=== PATIENT | female | born 1935 | race Caucasian/White ===

== ENCOUNTER 2016-06-10 13:50 | Observation (INO) | payer OTHER ==
--- NOTE | 2016-06-10 14:38 | PDOC ---
History of Present Illness - General History Source: Patient Exam Limitations: No Limitations - History of Present Illness Initial Comments: 06/10/16 14:40 The patient is a 80 year old female, with a significant past medical history of HTN and high cholesterol who presents to the emergency department with possible foreign body in left index finger for about a week. The patient reports about a week ago breaking a glass on her left hand and having sensations of glass being embedded in her index finger. She reports these past 2 days her hand has become swollen, painful, and erythematous. She describes the pain in her finger as a burning and itching sensation. She also notes the redness has started to spread up her LUE around her hand. She denies any direct hand trauma or injury. She denies any numbness and tingling in her UEs. She denies recent fevers, chills, headache or dizziness. She denies recent nausea, vomit, diarrhea or constipation. Allergies: NKA Past surgical history: None reported. Social history: Nonsmoker. Denies EtOH use and recreational drug use. Primary Care Physician: <Wilbert Johnson - Last Filed: 06/10/16 14:39> - General History Source: Patient, Family Exam Limitations: No Limitations <Reina Dutton - Last Filed: 06/12/16 18:13> - General Chief Complaint: Injury Stated Complaint: possible foreign body in left index finger Time Seen by Provider: 06/10/16 14:06 Past History <Wilbert Johnson - Last Filed: 06/10/16 14:39> - Past Medical History Anemia: No Asthma: No Cancer: No Cardiac Disorders: No CVA: No COPD: No CHF: No Dementia: No Diabetes: No GI Disorders: No Disorders: No HTN: Yes Hypercholesterolemia: Yes Liver Disease: No Seizures: No Thyroid Disease: No - Surgical History Abdominal Surgery: No Appendectomy: No Cardiac Surgery: No Cholecystectomy: No Lung Surgery: No Neurologic Surgery: No Orthopedic Surgery: No - Psycho/Social/Smoking Cessation Hx Anxiety: No Suicidal Ideation: No Smoking History: Never smoked Information on smoking cessation initiated: No Hx Alcohol Use: No Drug/Substance Use Hx: No Substance Use Type: None Hx Substance Use Treatment: No <Reina Dutton - Last Filed: 06/12/16 18:13> - Past Medical History Allergies/Adverse Reactions: Allergies Allergy/AdvReac Type Severity Reaction Status Date / Time No Known Drug Allergies Allergy Verified 06/10/16 17:30 Home Medications: Ambulatory Orders Aspirin [ASA -] 81 mg PO DAILY 06/10/16 Atorvastatin Ca [Lipitor] 10 mg PO HS 06/10/16 Hydrochlorothiazide [Hctz -] 25 mg PO DAILY 06/10/16 Ranitidine HCl [Zantac 75] 150 mg PO PRN PRN 06/10/16 Valsartan [Diovan] 320 mg PO DAILY 06/10/16 Amoxicillin/Potassium Clav [Augmentin 875-125 Tablet] 1 each PO BID #14 tablet 06/12/16 Review of Systems - Review of Systems Able to Perform ROS?: Yes Comments:: 06/10/16 14:40 GENERAL/CONSTITUTIONAL: No: fever, chills, weakness, loss of appetite. HEAD, EYES, EARS, NOSE AND THROAT: No: change in vision, ear pain, discharge, sore throat, throat swelling. CARDIOVASCULAR: No: chest pain, lightheadedness, palpitations, syncope RESPIRATORY: No: cough, shortness of breath, wheezing, hemoptysis, stridor. GASTROINTESTINAL: No: nausea, vomiting, diarrhea, abdominal cramping, rectal bleeding, constipation. GENITOURINARY: No: dysuria, hematuria, frequency, urgency, flank pain. MUSCULOSKELETAL: +left index finger redness, warmth, and pain. No: back pain, neck pain, joint pain, muscle swelling or pain SKIN : No: lesions, pallor, rash or easy bruising. NEUROLOGIC: No: headache, vertigo, paresthesias, weakness ENDOCRINE: No: unexplained weight gain or loss HEMATOLOGIC/LYMPHATIC: No: anemia, easy bleeding, swelling nodes. <Wilbert Johnson - Last Filed: 06/10/16 14:39> *Physical Exam - Vital Signs Last Vital Signs Temp Pulse Resp BP Pulse Ox 99.1 F 79 16 95/57 96 06/10/16 14:01 06/10/16 14:01 06/10/16 14:01 06/10/16 14:01 06/10/16 14:01 - Physical Exam Comments: 06/10/16 14:40 GENERAL: The patient is in no acute distress. HEAD: Normal with no signs of trauma. EYES: PERRLA, EOMI, sclera anicteric, conjunctiva clear. ENT: Ears normal, nares patent, oropharynx clear without exudates. Moist mucous membranes. NECK: Normal range of motion, supple without lymphadenopathy, JVD, or masses. LUNGS: Breath sounds equal, clear to auscultation bilaterally. No wheezes, and no crackles. HEART: Regular rate and rhythm, normal S1 and S2 without murmur, rub or gallop. ABDOMEN: Soft, nontender, normoactive bowel sounds. No guarding, no rebound. No masses palpable. EXTREMITIES: Left index finger is erythematous, hot, swollen, and has tenderness. Dorsum of the left hand is also swollen and tender. NEUROLOGICAL: Cranial nerves II through XII grossly intact. Normal speech. No focal neurological deficits. MUSCULOSKELETAL: Back non-tender to palpation, no CVA tenderness SKIN: Warm, Dry, normal turgor, no rashes or lesions noted. <Wilbert Johnson - Last Filed: 06/10/16 14:39> - Vital Signs Last Vital Signs Temp Pulse Resp BP Pulse Ox 99.1 F 79 16 95/57 96 06/10/16 14:01 06/10/16 14:01 06/10/16 14:01 06/10/16 14:01 06/10/16 14:01 <Reina Dutton - Last Filed: 06/12/16 18:13> ED Treatment Course - LABORATORY CBC & Chemistry Diagram: 06/11/16 07:30 06/11/16 07:30 <Reina Dutton - Last Filed: 06/12/16 18:13> Medical Decision Making - Medical Decision Making 06/10/16 14:38 A portion of this note was documented by scribe services under my direction. I have reviewed the details of the note, within reason, and agree with the documentation with the following case summary and management plan written by me. Nursing documentation reviewed and incorporated into medical decision making This is a 80-year-old female presenting with her sons emergency department with a complaint of left pointer erythema and swelling. Patient states she noted some pain approximately one week ago, patient's son states that her finger was erythematous and swollen for the past 2 days. No fevers no chills. Patient unclear how this happened, patient son states she picked up some broken glass and questions whether there is a foreign body in the finger. Patient denies bug bites. Differential diagnosis: Cellulitis, felon, Osteomyelitis Will do labs Will do xray Will give Vancomycin will plan to admit 06/12/16 18:11 Laboratory Tests 06/10/16 06/10/16 14:45 14:45 WBC 6.4 Hgb 11.4 Hct 34.0 Plt Count 238 BUN 40 H Creatinine 1.3 Random Glucose 109 H Will admit to hospitalist service clinical impression: cellulitis <Reina Dutton - Last Filed: 06/12/16 18:13> *DC/Admit/Observation/Transfer - Attestations Scribe Attestion: 06/10/16 14:40 Documentation prepared by Wilbert Johnson, acting as medical technologist for Reina Dutton MD. <Wilbert Johnson - Last Filed: 06/10/16 14:39> - Discharge Dispostion Admit: Yes Decision to Admit order Date/Time: 06/10/16 16:35 <Reina Dutton - Last Filed: 06/12/16 18:13> Diagnosis at time of Disposition: Cellulitis of finger of left hand - Discharge Dispostion Disposition: HOME Condition at time of disposition: Stable - Prescriptions
[2016-06-10 15:00] LABS: BASOPHIL 0.7 % (0-2.0); EOSINOPHIL 1.7 % (0-4.5); MCH 27.7 pg (25.7-33.7); MCHC 33.7 g/dl (32.0-36.0); MEAN CELL VOLUME 82.2 fl (80-96); MEAN PLT VOLUME 9.9 fl (7.5-11.1); NEUTROPHILS 59.9 % (42.8-82.8); PLATELET COUNT 238 K/MM3 (134-434); RDW 13.8 % (11.6-15.6); WHITE BLOOD COUNT 6.4 K/mm3 (4.0-10.8)
[2016-06-10 15:56] LABS: ALBUMIN 3.8 g/dl (3.5-5.0); ALK PHOS 87 U/L (32-92); ANION GAP 10 (8-16); CALCIUM 9.1 mg/dl (8.4-10.2); CO2 24 mmol/L (22-28); CREATININE 1.3 mg/dl (0.6-1.3); GLUCOSE,RANDOM 109 mg/dl (74-106); SGOT/AST 23 U/L (10-42); SGPT/ALT 22 U/L (10-40); TOT PROT 6.7 g/dl (6.4-8.3)
[2016-06-10] MEDS ORDERED: VANCOMYCIN 1,000 MG in DEXTROSE 5%-WATER - 250 ML IVPB ONE (16:33)
[2016-06-10 16:39] LABS: BILIRUBIN,TOTAL < 0.3 mg/dl (0.2-1.0)
[2016-06-10] MEDS ORDERED: VANCOMYCIN 1,000 MG VIAL (RESTRICTED TO ID ONLY) ONE (16:40)
--- NOTE | 2016-06-10 17:57 | HP ---
CHIEF COMPLAINT: Left hand 2nd digit cellulitits HISTORY OF PRESENT ILLNESS: The patient is a 80 year old female, with a significant past medical history of HTN and high cholesterol who presents to the emergency department with possible foreign body in left index finger for about a week. The patient reports about a week ago breaking a glass on her left hand and having sensations of glass being embedded in her index finger. She reports these past 2 days her hand has become swollen, painful, and erythematous. She describes the pain in her finger as a burning and itching sensation. She also notes the redness has started to spread up her LUE around her hand. She denies any direct hand trauma or injury. She denies any numbness and tingling in her UEs. She denies recent fevers, chills, headache or dizziness. She denies recent nausea, vomit, diarrhea or constipation. Allergies: NKA Past surgical history: None reported. Social history: Nonsmoker. Denies EtOH use and recreational drug use. Primary Care Physician: ER course was notable for: (1) cellulitis left hand 2nd finger; xray with findings suggestive of possible avulsion, FBO, with tissue swelling leading to ulna distal point (2) (3) Family History: Allergies No Known Drug Allergies Allergy (Verified 06/10/16 17:30) HOME MEDICATIONS: Home Medications Medication Instructions Recorded Aspirin [ASA -] 81 mg PO DAILY 06/10/16 Atorvastatin Ca [Lipitor] 10 mg PO HS 06/10/16 Hydrochlorothiazide [Hctz -] 25 mg PO DAILY 06/10/16 Ranitidine HCl [Zantac 75] 150 mg PO PRN PRN 06/10/16 Valsartan [Diovan] 320 mg PO DAILY 06/10/16 REVIEW OF SYSTEMS CONSTITUTIONAL: Absent: fever, chills, diaphoresis, generalized weakness, malaise, loss of appetite, weight change HEENT: Absent: rhinorrhea, nasal congestion, throat pain, throat swelling, difficulty swallowing, mouth swelling, ear pain, eye pain, visual changes CARDIOVASCULAR: Absent: chest pain, syncope, palpitations, irregular heart rate, lightheadedness , peripheral edema RESPIRATORY: Absent: cough, shortness of breath, dyspnea with exertion, orthopnea, wheezing, stridor, hemoptysis GASTROINTESTINAL: Absent: abdominal pain, abdominal distension, nausea, vomiting, diarrhea, constipation, melena, hematochezia GENITOURINARY: Absent: dysuria, frequency, urgency, hesitancy, hematuria, flank pain, genital pain MUSCULOSKELETAL: Absent: myalgia, arthralgia, joint swelling, back pain, neck pain SKIN: Absent: rash, itching, pallor, left hand finger with cellulitis 2nd digit swelling, numbness and pain with redness HEMATOLOGIC/IMMUNOLOGIC: Absent: easy bleeding, easy bruising, lymphadenopathy, frequent infections ENDOCRINE: Absent: unexplained weight gain, unexplained weight loss, heat intolerance, cold intolerance NEUROLOGIC: Absent: headache, focal weakness or paresthesias, dizziness, unsteady gait, seizure, mental status changes, bladder or bowel incontinence PSYCHIATRIC: Absent: anxiety, depression, suicidal or homicidal ideation, hallucinations. PHYSICAL EXAMINATION Vital Signs - 24 hr 06/10/16 06/10/16 14:01 17:06 Temperature 99.1 F 98.6 F Pulse Rate 79 Pulse Rate [ 95 H Right Radial] Respiratory 16 16 Rate Blood Pressure 95/57 Blood Pressure 111/36 [Right Arm] O2 Sat by Pulse 96 Oximetry (%) GENERAL: Awake, alert, and fully oriented, in no acute distress. HEAD: Normal with no signs of trauma. NECK: Normal range of motion, supple without lymphadenopathy, JVD, or masses. LUNGS: Breath sounds equal, clear to auscultation bilaterally. No wheezes, and no crackles. No accessory muscle use. HEART: Regular rate and rhythm, normal S1 and S2 without murmur, rub or gallop. ABDOMEN: Soft, nontender, not distended, normoactive bowel sounds, no guarding, no rebound, no masses. No hepatomegaly or splenomegaly. MUSCULOSKELETAL: Normal range of motion at all joints. No bony deformities or tenderness. No CVA tenderness. UPPER EXTREMITIES: 2+ pulses, warm, well-perfused. No cyanosis. No clubbing. No peripheral edema. LOWER EXTREMITIES: 2+ pulses, warm, well-perfused. No calf tenderness. No peripheral edema. NEUROLOGICAL: Cranial nerves II-XII intact. Normal speech. Normal gait. PSYCHIATRIC: Cooperative. Good eye contact. Appropriate mood and affect. SKIN: Warm, dry, normal turgor, no rashes or lesions noted, normal capillary refill. Left finger 2nd digit with cellulitis, redness, swelling, pain, numbness from distal end to metacarpals with red trailing to hand dorsal side. Laboratory Results - last 24 hr 06/10/16 06/10/16 14:45 14:45 WBC 6.4 RBC 4.13 Hgb 11.4 Hct 34.0 MCV 82.2 MCHC 33.7 RDW 13.8 Plt Count 238 MPV 9.9 Neutrophils % 59.9 Lymphocytes % 30.2 Monocytes % 7.5 Eosinophils % 1.7 Basophils % 0.7 Sodium 141 Potassium 4.4 Chloride 107 Carbon Dioxide 24 Anion Gap 10 BUN 40 H Creatinine 1.3 Creat Clearance w eGFR 39.61 Random Glucose 109 H Calcium 9.1 Total Bilirubin < 0.3 AST 23 ALT 22 Alkaline Phosphatase 87 Total Protein 6.7 Albumin 3.8 ASSESSMENT/PLAN: 80 yr old female with c/o left hand 2nd digit cellulitis of unknown cause with possible FBO vs avulsion 1. cellulitis -vanco bid -monitor temp, wbc, infection symptoms -hand ortho referral for discharge 2. HTN -continue meds 3. HLD -continue Lipitor 4. DVT/GI ppx 5. Admit to med surg observation Visit type - Emergency Visit Emergency Visit: Yes Care time: The patient presented to the Emergency Department on the above date and was hospitalized for further evaluation of their emergent condition. - New Patient This patient is new to me today: Yes Date on this admission: 06/10/16 - Critical Care Critical Care patient: No
[2016-06-10] MEDS ORDERED: RANITIDINE HCL 150 MG TABLET (FP) PO PRN (18:15)
[2016-06-10 18:36] VITALS: BMI 36.2
[2016-06-10] MEDS: HEPARIN NA (PORCINE) 5,000 UNITS/ML 1ML VIAL SQ SCH (21:33)
[2016-06-10] MEDS: ATORVASTATIN CA 10 MG TABLET (FP) PO SCH (21:34)
[2016-06-10] MEDS ORDERED: VANCOMYCIN 1 GRAM (PRE-DOCKED) 1,000 MG/250 ML BAG IVPB SCH (22:00)
[2016-06-11 08:12] LABS: BASOPHIL 0.5 % (0-2.0); EOSINOPHIL 3.9 % (0-4.5); MCH 26.5 pg (25.7-33.7); MCHC 32.3 g/dl (32.0-36.0); MEAN CELL VOLUME 82.2 fl (80-96); MEAN PLT VOLUME 9.7 fl (7.5-11.1); NEUTROPHILS 47.3 % (42.8-82.8); PLATELET COUNT 219 K/MM3 (134-434); RDW 13.7 % (11.6-15.6); WHITE BLOOD COUNT 6.4 K/mm3 (4.0-10.8)
[2016-06-11 08:19] LABS: ALBUMIN 3.4 g/dl (3.5-5.0); ALK PHOS 80 U/L (32-92); ANION GAP 10 (8-16); CALCIUM 9.3 mg/dl (8.4-10.2); CO2 24 mmol/L (22-28); CREATININE 0.9 mg/dl (0.6-1.3); GLUCOSE,RANDOM 113 mg/dl (74-106); SGOT/AST 19 U/L (10-42); SGPT/ALT 19 U/L (10-40)
--- NOTE | 2016-06-11 08:23 | PN ---
[id number] the erythema has lessened to the digit OBJECTIVE: patient is a 80 y/o female with a past medical history of hypertension and hyperlipidemia, patient was admitted from the emergency department to observation mellitus of the left second digit of the hand, Vital Signs Period Temp Pulse Resp BP Sys/Suarez Pulse Ox Last 24 Hr 98.1 F-98.7 F 70-75 16-20 126-137/52-62 93-100 GENERAL: The patient is awake, alert, and fully oriented, in no acute distress. HEAD: Normal with no signs of trauma. EYES: PERRL, extraocular movements intact, sclera anicteric, conjunctiva clear. No ptosis. ENT: Ears normal, nares patent, oropharynx clear without exudates, moist mucous membranes. NECK: Trachea midline, full range of motion, supple. LUNGS: Breath sounds equal, clear to auscultation bilaterally, no wheezes, no crackles, no accessory muscle use. HEART: Regular rate and rhythm, S1, S2 without murmur, rub or gallop. ABDOMEN: Soft, nontender, nondistended, normoactive bowel sounds, no guarding, no rebound, no hepatosplenomegaly, no masses. EXTREMITIES: 2+ pulses, warm, well-perfused, no edema. LEFT HAND: erythema to the left second digit pain upon flexion and extension, 1 cm of induration with fluctuance to the medial lateral digit, no lymphangitis noted NEUROLOGICAL: Cranial nerves II through XII grossly intact. Normal speech, gait not observed. PSYCH: Normal mood, normal affect. SKIN: Warm, dry, normal turgor, no rashes or lesions noted Active Medications Generic Name Dose Route Start Last Admin Trade Name Freq PRN Reason Stop Dose Admin Aspirin 81 mg 06/11/16 10:00 Asa - PO DAILY DEIRDRE Atorvastatin Calcium 10 mg 06/10/16 22:00 06/10/16 21:34 Lipitor - PO 10 mg HS DEIRDRE Administration Heparin Sodium (Porcine) 5,000 unit 06/10/16 22:00 06/10/16 21:33 Heparin - SQ 5,000 unit BID DEIRDRE Administration Hydrochlorothiazide 25 mg 06/11/16 10:00 Hctz - PO DAILY DEIRDRE Ranitidine HCl 150 mg 06/10/16 18:15 Zantac - PO BID PRN HEARTBURN Valsartan 320 mg 06/11/16 10:00 Diovan - PO DAILY DEIRDRE Vancomycin HCl 1,000 mg 06/10/16 22:00 Vancomycin (Pre-Docked) IVPB BID DEIRDRE Protocol imaging xray of left hand: soft tissue swelling of the second digit and density at the ulnar aspect of the DIP joint, questionable avulsion versus foreign body ASSESSMENT/PLAN: 1) ID cellulitis of left finger -start vancomyvin 1gm - consulted with Dr Medeiros, ID start unasyn daily - call placed to oncall hand surgeon Dr. Butterfield, awaiting call back - hand elevation 2) card hypertension -continue valsartan and HCTZ - b/p at goal f/e/n - low sodium diet - replete lytes prn ppx -heparin - zantac -oob dispo: requires observation admission Visit type - Emergency Visit Emergency Visit: Yes ED Registration Date: 06/10/16 Care time: The patient presented to the Emergency Department on the above date and was hospitalized for further evaluation of their emergent condition. - New Patient This patient is new to me today: Yes Date on this admission: 06/11/16 - Critical Care Critical Care patient: No - Discharge Referral Referred to [facility] Med P.C.: No
[2016-06-11] MEDS ORDERED: VANCOMYCIN 1 GRAM (PRE-DOCKED) 250 ML IVPB ONE (09:00)
[2016-06-11] MEDS: HYDROCHLOROTHIAZIDE 25 MG TABLET (FP) PO SCH (09:38)
[2016-06-11] MEDS: VALSARTAN 160 MG TABLET (UD) PO SCH (09:38)
[2016-06-11] MEDS: ASPIRIN 81 MG CHEWABLE TABLETS PO SCH (09:38)
--- NOTE | 2016-06-11 10:33 | PN ---
Progress Note (short form) - Note Progress Note: ID Consult dictated Cellulitis L index finger Hand surgery evaluation Empiric vancomycin/ unasyn Elevation
[2016-06-11] MEDS ORDERED: AMPICILLIN NA/SULBACTAM NA 1.5 GM in SODIUM CHLORIDE 100 ML IVPB SCH (10:45)
[2016-06-11] MEDS: HEPARIN NA (PORCINE) 5,000 UNITS/ML 1ML VIAL SQ SCH ×2 (10:47→22:01)
--- NOTE | 2016-06-11 14:15 | CONS ---
DATE OF CONSULTATION: DATE OF DICTATION: 06/11/2016 HISTORY OF PRESENT ILLNESS: The patient is a 80-year-old female evaluated for cellulitis of the left index finger. Patient gives an unreliable history. She reports a 2-day history of worsening erythema, warmth and swelling of the left index finger. According to the emergency room notes, she had broken a glass and sustained trauma to her left hand with sensations of glass being imbedded in her left index finger. She has no recall for these events at this time. She had developed worsening pain, swelling, and erythema of the index finger as well as pruritus and burning sensation. The redness extended to the 2nd MCP joint and proximally to the dorsum of the hand. She presented to the emergency room where she was admitted with cellulitis of the left index finger. She denies any high-grade fever or shaking chills. She denies history of serious soft tissue infection requiring hospitalization in the past. She is nondiabetic. PAST MEDICAL HISTORY: Positive for osteoarthritis, hypertension, hyperlipidemia. ALLERGIES: No known allergies. MEDICATIONS AT HOME: Include Tylenol, aspirin, Lopressor, Zantac. SOCIAL HISTORY: She resides at home. She is a nonsmoker/nondrinker. SYSTEMS REVIEW: Neurologic: No loss of consciousness, seizure activity, or focal weakness. Cardiac: Negative for chest pain or palpitations. Respiratory: Negative for cough or sputum production. Gastrointestinal: Negative for vomiting or diarrhea. Genitourinary: Negative for urinary tract infection. LABORATORY DATA: White count 6.4, hematocrit 30.4, platelets 219. Creatinine 0.9. Blood cultures are pending. X-ray of the finger shows soft tissue swelling of the 2nd digit diffusely. There was a density at the ulnar aspect of the DIP joint, possible foreign body versus small avulsion. PHYSICAL EXAMINATION: General: She is awake and alert. She is not acutely toxic-appearing. Vital signs: Temperature 98.7, blood pressure 99/47, pulse 73 and regular, respirations 17 per minute. HEENT: Sclerae anicteric. Heart: Heart sounds S1, S2. Lungs: Clear. Abdomen: Soft. No tenderness elicited. No mass, rebound, or rigidity. Extremities: Negative for pedal edema. Examination of the left hand, there was diffuse swelling of the left index finger. There was erythema, warmth, and swelling involving the index finger from the MCP joint distally. There was decreased range of motion. There was some slight erythema and swelling at the left 2nd MCP joint. No crepitus or fluctuance. No lymphangitic streaking. IMPRESSION: 1. Cellulitis of the left index finger. 2. Possible foreign body in the left index finger soft tissue. Hand surgery evaluation has been requested, await cultures, empiric antibiotic coverage with vancomycin and Unasyn, elevation and analgesics. Will follow. Thank you for the kind referral. JAY JAY CROWE M.D. [id number]
[2016-06-11 14:25] LABS: BILIRUBIN,TOTAL 0.3 mg/dl (0.2-1.0)
[2016-06-11] MEDS: AMPICILLIN NA/SULBACTAM NA 100 ML IVPB SCH ×2 (15:07→22:00)
[2016-06-11] MEDS ORDERED: ACETAMINOPHEN 325 MG TABLET (FP) PO PRN (16:55)
[2016-06-11] MEDS: VANCOMYCIN 1 GRAM (PRE-DOCKED) 250 ML IVPB SCH (22:01)
[2016-06-11] MEDS: ATORVASTATIN CA 10 MG TABLET (FP) PO SCH (22:01)
[2016-06-12] MEDS: AMPICILLIN NA/SULBACTAM NA 100 ML IVPB SCH ×2 (03:27→09:37)
[2016-06-12] MEDS: HEPARIN NA (PORCINE) 5,000 UNITS/ML 1ML VIAL SQ SCH (09:36)
[2016-06-12] MEDS: HYDROCHLOROTHIAZIDE 25 MG TABLET (FP) PO SCH (09:37)
[2016-06-12] MEDS: VALSARTAN 160 MG TABLET (UD) PO SCH (09:37)
[2016-06-12] MEDS: ASPIRIN 81 MG CHEWABLE TABLETS PO SCH (09:37)
--- NOTE | 2016-06-12 10:04 | PN ---
[id number] during exam. OBJECTIVE: Vital Signs Period Temp Pulse Resp BP Sys/Suarez Pulse Ox Last 24 Hr 97.7 F-98.4 F 66-74 17-18 100-139/43-62 95-96 GENERAL: The patient is awake, alert, and fully oriented, in no acute distress. HEAD: Normal with no signs of trauma. EYES: PERRL, extraocular movements intact, sclera anicteric, conjunctiva clear. No ptosis. ENT: Ears normal, nares patent, oropharynx clear without exudates, moist mucous membranes. NECK: Trachea midline, full range of motion, supple. LUNGS: Breath sounds equal, clear to auscultation bilaterally, no wheezes, no crackles, no accessory muscle use. HEART: Regular rate and rhythm, S1, S2 without murmur, rub or gallop. ABDOMEN: Soft, nontender, nondistended, normoactive bowel sounds, no guarding, no rebound, no hepatosplenomegaly, no masses. EXTREMITIES: 2+ pulses, warm, well-perfused, no edema. Swelling and erythema present on left index finger from MCP to fingertip- worse on dorsum. NEUROLOGICAL: Cranial nerves II through XII grossly intact. Normal speech, gait not observed. PSYCH: Normal mood, normal affect. SKIN: Warm, dry, normal turgor, no rashes or lesions noted. Swelling and erythema present on left index finger from MCP to fingertip- worse on dorsum. Laboratory Results - last 24 hr 06/11/16 07:30 Total Bilirubin 0.3 Active Medications Generic Name Dose Route Start Last Admin Trade Name Freq PRN Reason Stop Dose Admin Acetaminophen 650 mg 06/11/16 16:55 Tylenol - PO Q6H PRN FEVER OR PAIN Aspirin 81 mg 06/11/16 10:00 06/12/16 09:37 Asa - PO 81 mg DAILY DEIRDRE Administration Atorvastatin Calcium 10 mg 06/10/16 22:00 06/11/16 22:01 Lipitor - PO 10 mg HS DEIRDRE Administration Heparin Sodium (Porcine) 5,000 unit 06/10/16 22:00 06/12/16 09:36 Heparin - SQ 5,000 unit BID DEIRDRE Administration Hydrochlorothiazide 25 mg 06/11/16 10:00 06/12/16 09:37 Hctz - PO 25 mg DAILY DEIRDRE Administration Vancomycin HCl 250 mls @ 166.667 mls/hr 06/11/16 21:00 06/11/16 22:01 Vancomycin (Pre-Docked) IVPB 166.667 mls/hr Q12H DEIRDRE Administration Ampicillin Sodium/Sulbactam Sodium 100 mls @ 200 mls/hr 06/11/16 10:51 09:37 Unasyn 1.5 Gm (Pre-Docked) IVPB 200 mls/hr Q6H-IV DEIRDRE Administration Ranitidine HCl 150 mg 06/10/16 18:15 Zantac - PO BID PRN HEARTBURN Valsartan 320 mg 06/11/16 10:00 06/12/16 09:37 Diovan - PO 320 mg DAILY DEIRDRE Administration ASSESSMENT/PLAN: A: This is a 80 yo woman with h/o HTN and HLD who presented to the ED with atraumatic swelling and erythema to left index finger on 06/10/16. Full strength and ROM against resistance of affected digit. Patient remains afebrile. P: Cellulitis of left index finger -continue Unasyn -continue Vanco -elevate hand -followed by MARIELA Medeiros -hand surgeon consult called to Dr. Ribera CAD -continue home ASA HTN -BP well controlled -continue HCTZ and Diovan HLD -continue atorvastatin PPX -continue heparin -continue Zantac -OOB F/E/N -regular diet Dispo: Probable d/c after hand consult and transition to PO abx. Cleared for discharge by hand surgeon. Will discharge with Rx Augmentin 875 per MD Medeiros. Visit type - Emergency Visit Emergency Visit: Yes ED Registration Date: 06/10/16 Care time: The patient presented to the Emergency Department on the above date and was hospitalized for further evaluation of their emergent condition. - New Patient This patient is new to me today: Yes Date on this admission: 06/19/16 - Critical Care Critical Care patient: No - Discharge Referral Referred to [facility] Med P.C.: No
[2016-06-12] MEDS: VANCOMYCIN 1 GRAM (PRE-DOCKED) 250 ML IVPB SCH (10:18)
--- NOTE | 2016-06-12 10:20 | DS ---
[id number] Resp BP Sys/Suarez Pulse Ox Last 24 Hr 97.7 F-98.4 F 66-74 17-18 100-139/43-62 95-96 PHYSICAL EXAM ENERAL: The patient is awake, alert, and fully oriented, in no acute distress. HEAD: Normal with no signs of trauma. EYES: PERRL, extraocular movements intact, sclera anicteric, conjunctiva clear. No ptosis. ENT: Ears normal, nares patent, oropharynx clear without exudates, moist mucous membranes. NECK: Trachea midline, full range of motion, supple. LUNGS: Breath sounds equal, clear to auscultation bilaterally, no wheezes, no crackles, no accessory muscle use. HEART: Regular rate and rhythm, S1, S2 without murmur, rub or gallop. ABDOMEN: Soft, nontender, nondistended, normoactive bowel sounds, no guarding, no rebound, no hepatosplenomegaly, no masses. EXTREMITIES: 2+ pulses, warm, well-perfused, no edema. Swelling and erythema present on left index finger from MCP to fingertip- worse on dorsum. NEUROLOGICAL: Cranial nerves II through XII grossly intact. Normal speech, gait not observed. PSYCH: Normal mood, normal affect. SKIN: Warm, dry, normal turgor, no rashes or lesions noted. Swelling and erythema present on left index finger from MCP to fingertip- worse on dorsum. LABS Laboratory Results - last 24 hr 06/11/16 07:30 Total Bilirubin 0.3 HOSPITAL COURSE: Date of Admission:06/10/16 Date of Discharge: 06/12/16 Minutes to complete discharge: 20 Discharge Summary Reason For Visit: CELLULITIS OF LEFT FINGER OR LEFT HAND Current Active Problems Cellulitis of finger of left hand (Acute) Hospital Course: Initial hospital course: The patient is a 80 year old female, with a significant past medical history of HTN and high cholesterol who presented to the emergency department with possible foreign body in left index finger for about a week. The patient reported about a week ago breaking a glass on her left hand and having sensations of glass being embedded in her index finger. She reported for 2 days prior to presentation, her hand had become swollen, painful, and erythematous. She described the pain in her finger as a burning and itching sensation. She also noted the redness has started to spread up her LUE around her hand. She denied any direct hand trauma or injury. She denied any numbness and tingling in her upper extremities. She denied recent fevers, chills, headache or dizziness. She denied recent nausea, vomit, diarrhea or constipation. Hospital course by problem list: Cellulitis of left index finger -treated with Unasyn and Vancomycin -followed by ID Dr. Medeiros -hand surgeon consult called to Dr. Ribera- no acute surgical process. cleared for discharge. Condition: Stable - Instructions Diet, Activity, Other Instructions: Call Dr. Iverson for appointment within 2 weeks. Take Augmentin as prescribed for infection. Take Tylenol as needed for pain. Return to Emergency Department for fevers, drainage from wound, increased pain or any other complaints. Thank you for letting us take care of you. Patient and son verbalized understanding of discharge instructions. Disposition: HOME - Home Medications Comprehensive Discharge Medication List: Ambulatory Orders Aspirin [ASA -] 81 mg PO DAILY 06/10/16 Atorvastatin Ca [Lipitor] 10 mg PO HS 06/10/16 Hydrochlorothiazide [Hctz -] 25 mg PO DAILY 06/10/16 Ranitidine HCl [Zantac 75] 150 mg PO PRN PRN 06/10/16 Valsartan [Diovan] 320 mg PO DAILY 06/10/16 Augmentin 875mg BID daily 06/12/16 Problem List - Problems (1) Cellulitis of finger of left hand Code(s): L03.012 - CELLULITIS OF LEFT FINGER This patient is new to me today: Yes Date on this admission: 06/19/16 Emergency Visit: Yes ED Registration Date: 06/10/16 Care time: The patient presented to the Emergency Department on the above date and was hospitalized for further evaluation of their emergent condition. Critical Care patient: No - Discharge Referral Referred to [facility] Med P.C.: No
--- NOTE | 2016-06-12 10:56 | PN ---
Progress Note, Physician History of Present Illness: No complaints of index finger pain Erythema and swelling markedly reduced No fever/ chills Tolerating antibiotics - Current Medication List Current Medications: Active Medications Acetaminophen (Tylenol -) 650 mg PO Q6H PRN PRN Reason: FEVER OR PAIN Aspirin (Asa -) 81 mg PO DAILY COUNT INCLUDES THE [facility] Last Admin: 06/12/16 09:37 Dose: 81 mg Atorvastatin Calcium (Lipitor -) 10 mg PO HS COUNT INCLUDES THE [facility] Last Admin: 06/11/16 22:01 Dose: 10 mg Heparin Sodium (Porcine) (Heparin -) 5,000 unit SQ BID COUNT INCLUDES THE [facility] Last Admin: 06/12/16 09:36 Dose: 5,000 unit Hydrochlorothiazide (Hctz -) 25 mg PO DAILY COUNT INCLUDES THE [facility] Last Admin: 06/12/16 09:37 Dose: 25 mg Vancomycin HCl (Vancomycin (Pre-Docked)) 250 mls @ 166.667 mls/hr IVPB Q12H COUNT INCLUDES THE [facility] Last Admin: 06/12/16 10:18 Dose: 166.667 mls/hr Ampicillin Sodium/Sulbactam Sodium (Unasyn 1.5 Gm (Pre-Docked)) 100 mls @ 200 mls/hr IVPB Q6H-IV COUNT INCLUDES THE [facility] Last Admin: 06/12/16 09:37 Dose: 200 mls/hr Ranitidine HCl (Zantac -) 150 mg PO BID PRN PRN Reason: HEARTBURN Valsartan (Diovan -) 320 mg PO DAILY COUNT INCLUDES THE [facility] Last Admin: 06/12/16 09:37 Dose: 320 mg - Objective Vital Signs: Vital Signs Temperature 98.0 F 06/12/16 06:00 Pulse Rate 67 06/12/16 06:00 Respiratory Rate 17 06/12/16 06:00 Blood Pressure 130/54 06/12/16 06:00 O2 Sat by Pulse Oximetry (%) 96 06/12/16 06:25 Constitutional: Yes: No Distress Cardiovascular: Yes: Regular Rate and Rhythm, S1, S2 Respiratory: Yes: CTA Bilaterally Gastrointestinal: Yes: Normal Bowel Sounds, Soft, Abdomen, Obese. No: Tenderness Extremities: Yes: Other (L index finger swelling almost completely resolved Able to clench fist Erythema markedly improved) Labs: CBC, BMP 06/11/16 07:30 06/11/16 07:30 Assessment/Plan Cellulitis L index finger- improved Hand surgery evaluation pending If cleared for discharge- switch to po Augmentin 875mg bid x 7d
--- NOTE | 2016-06-12 13:58 | CONSULT ---
Consult - History of Present Illness Chief Complaint: Left index finger pain History of Present Illness: 88-year-old female admitted to the hospital for cellulitis of the left index finger. She states about 2 weeks ago she again having pain without any injury or trauma. She eventually went to the emergency room and was started on IV antibiotics. The finger has been feeling much better over the past several days. She denies any numbness or tingling.There are no other associated, aggravating or relieving factors. - History Source History Provided By: Patient, Medical Record Limitations to Obtaining History: No Limitations - Alcohol/Substance Use Hx Alcohol Use: No - Smoking History Smoking history: Never smoked Have you smoked in the past 12 months: No Home Medications - Allergies Allergies/Adverse Reactions: Allergies Allergy/AdvReac Type Severity Reaction Status Date / Time No Known Drug Allergies Allergy Verified 06/10/16 17:30 - Home Medications Home Medications: Ambulatory Orders Aspirin [ASA -] 81 mg PO DAILY 06/10/16 Atorvastatin Ca [Lipitor] 10 mg PO HS 06/10/16 Hydrochlorothiazide [Hctz -] 25 mg PO DAILY 06/10/16 Ranitidine HCl [Zantac 75] 150 mg PO PRN PRN 06/10/16 Valsartan [Diovan] 320 mg PO DAILY 06/10/16 Review of Systems - Review of Systems Constitutional: reports: No Symptoms Eyes: reports: No Symptoms HENT: reports: No Symptoms Neck: reports: No Symptoms Cardiovascular: reports: No Symptoms Respiratory: reports: No Symptoms Gastrointestinal: reports: No Symptoms Genitourinary: reports: No Symptoms Breasts: reports: No Symptoms Reported Musculoskeletal: reports: No Symptoms Integumentary: reports: Change in Color, Erythema, Other Neurological: reports: No Symptoms Endocrine: reports: No Symptoms Hematology/Lymphatic: reports: No Symptoms Psychiatric: reports: No Symptoms Physical Exam Vital Signs: Vital Signs Temperature 98.0 F 06/12/16 06:00 Pulse Rate 67 06/12/16 06:00 Respiratory Rate 06/12/16 06:00 Blood Pressure 130/54 06/12/16 06:00 O2 Sat by Pulse Oximetry (%) 96 06/12/16 06:25 Constitutional: Yes: Well Nourished, No Distress, Calm HENT: Yes: Atraumatic, Normocephalic Musculoskeletal: Yes: Other (Left index finger: No open wounds. Mild edema of the finger. There is diffuse resolving erythema of the index finger from the DIP joint to the MCP joint. Flexor and extensor tendons are functioning. She has near full range of motion the finger. No evidence of flexor tenosynovitis or felon. No drainage. NVID) Labs: CBC, BMP 06/11/16 07:30 06/11/16 07:30 Imaging - Results X-ray: Report Reviewed, Image Reviewed (X-ray left index finger: Moderate degenerative changes.) Assessment/Plan #1 resolving left index finger cellulitis without indication for surgical intervention -Antibiotics per ID -Follow-up with infectious disease or PCP. -ROM exercises
[2016-06-12 14:30] VITALS: BP 107/50; PULSE 77; TEMP 98.4
== END 2016-06-12 15:00 | disposition home or self-care (01) ==
LOC: FER 13:50 → FM/S 18:00
PROVIDERS: ADMIT Internal Medicine; ATTEND Nurse Practitioner Family
DX: L03.012 Cellulitis of left finger (principal); I10 Essential (primary) hypertension; E78.5 Hyperlipidemia, unspecified; I25.10 Atherosclerotic heart disease of native coronary artery without angina pectoris; Z79.82 Long term (current) use of aspirin
CPT/HCPCS: 36415; 73140-TC-LT; 80053; 85025; 87040; 99282-25; G0378; J1644